=== PATIENT | female | born 1960 | race African-American/Black ===

== ENCOUNTER 2022-12-04 10:38 | Emergency (ER) | payer OTHER, SELFPAY ==
--- NOTE | 2022-12-04 10:41 | ED.URI ---
HPI - URI/Sore Throat General Chief Complaint: Upper Respiratory Infection Stated Complaint: swollen glands, sore throat,cough,ear pain Time Seen by Provider: 12/04/22 10:40 Source: patient Mode of arrival: ambulatory Limitations: no limitations History of Present Illness HPI Narrative: Ms. Salamanca is a 62-year-old female patient presenting to the clinic today with complaints of sore throat, swollen glands, non-productive cough, and right ear pain x 2-3 days. She reports no fever or chills. Has felt as though she has some right cervical gland swelling. MD elicited complaint: sore throat and nasal congestion Related Data Home Medications Medication Instructions Recorded Confirmed epinephrine 0.3 mg/0.3 mL 0.3 mg IM PRN PRN Anaphylaxis 12/04/22 12/04/22 injection, auto-injector ezetimibe 10 mg tablet 10 mg PO DAILY 12/04/22 12/04/22 fluticasone propionate 50 2 spray intranasal DAILY 12/04/22 12/04/22 mcg/actuation nasal spray,suspension potassium chloride 10 mEq 10 meq PO DAILY 12/04/22 12/04/22 tablet,extended release telmisartan 80 1 tablet PO DAILY 12/04/22 12/04/22 mg-hydrochlorothiazide 25 mg tablet Allergies Allergy/AdvReac Type Severity Reaction Status Date / Time cheese Allergy Hives Verified 12/04/22 11:01 codeine Allergy Hives Verified 12/04/22 11:01 egg Allergy Palpitation Verified 12/04/22 11:01 s Review of Systems Review of Systems: Pertinent positives per HPI. Patient denies any fever, chills, rash, headache, visual changes, dizziness, shortness of breath, chest pain, palpitations, nausea, vomiting, diarrhea, constipation, abdominal pain, or any urinary issues. PMFSH Comments At the time of my signature, I reviewed and agree with the nursing past medical, surgical, social, and family history. There is no relevant family history pertinent to the patient complaint. Exam Narrative: General: Well-developed, obese, in no apparent distress Head: Normocephalic, atraumatic Eyes: Pupils equally round and reactive to light bilaterally, EOM intact, sclera and conjunctive clear, no discharge, lids normal Ears: Right TM intact, congested, left ear canal impacted with cerumen, unable to visualized TM, right ear canal clear, no drainage, grossly hearing normal. Nose: Nares patent, clear nasal discharge, mild inflammation, no sinus tenderness. Mouth: Oral pharynx with mild redness without lesions or masses, good dentition, MMM. Neck: Supple, trachea midline, no enlargement of anterior or posterior cervical nodes, no thyroid masses or goiter palpable. Cardio: Regular rate and rhythm, s1 and s2 normal, no murmur appreciated. Resp: Clear to auscultation bilaterally, no rhonchi, rales, wheezing or rubs Course Course Emergency Course: Portions of this record may have been created with voice recognition software. Level of Care: Express Care Visit Vital Signs Vital signs: Vital signs reviewed Procedures Ear Wax Removal Left Ear: Ear Wax Removal Date: 12/04/22 Ear Wax Removal Time: 11:05 Results: Re-examined: other (Very small amount of cerumen removed with irrigation-unable to visualize TM due to remaining cerumen impaction) TM Examination: other (unable to visualize TM) Ear Canal Exam: atraumatic Complications: pain, vertigo/dizziness and other (felt a pop in her ear) Technique: ear canal irrigated Additional Comments: Verbal consent obtained for left ear irrigation. Risk and benefits reviewed and patient voiced understanding. Ear irrigation performed using an elephant ear and spray water bottle. Mixture of 1/2 peroxide and 1/2 water used to irrigate left ear canal. Irrigated very small amount of cerumen from the left ear and patient began having pain, dizziness, and felt a pop in her left ear so irrigation was discontinued. Otoscope exam was performed and no blood or trauma to the external ear canal was visualized, unab
[2022-12-04 10:54] VITALS: BP 139/87; PULSE 64; RESP 16; TEMP 36.6; O2SAT 99
== END 2022-12-04 11:15 | disposition home or self-care (01) ==
PROVIDERS: Emergency Provider Nurse Practitioner Family
DX: H69.91 Unspecified Eustachian tube disorder, right ear (principal); H61.22 Impacted cerumen, left ear; J06.9 Acute upper respiratory infection, unspecified; J02.9 Acute pharyngitis, unspecified; E78.00 Pure hypercholesterolemia, unspecified; I10 Essential (primary) hypertension
CPT/HCPCS: 69209; 87081; 87880; 99213; G0463